=== PATIENT | male | born 1985 | race Caucasian/White ===

== ENCOUNTER 2016-09-10 07:42 | Emergency (ER) | payer SELFPAY ==
[2016-09-10 07:54] VITALS: BP 122/62; BMI 41.3
[2016-09-10] MEDS ORDERED: NS 1000 ML 1,000 ML ONE (08:03)
[2016-09-10 08:14] LABS: BASOPHILS % (AUTO) 0.4 % (0.2-1.0); EOSINOPHILS # (AUTO) 0.3 x10^3/uL (0.0-0.2); EOSINOPHILS % (AUTO) 3.7 % (0.9-2.9); HEMOGLOBIN 14.2 g/dL (13.5-18.0); LYMPHOCYTES # (AUTO) 2.1 X10^3/uL (1.3-2.9); LYMPHOCYTES % (AUTO) 30.7 % (21.0-51.0); MEAN CORPUSCULAR HEMOGLOBIN 29.1 pg (27.0-34.0); MEAN CORPUSCULAR HGB CONC 33.9 g/dL (33.0-35.0); MEAN CORPUSCULAR VOLUME 85.6 fL (80.0-100.0); MEAN PLATELET VOLUME 10.1 fL (7.4-11.0); MONOCYTES # (AUTO) 0.6 x10^3/uL (0.3-0.8); MONOCYTES % (AUTO) 9.2 % (0.0-13.0); NEUTROPHILS # (AUTO) 3.8 x10^3/uL (2.2-4.8); PLATELET COUNT 217 X10^3/uL (150.0-450.0); WHITE BLOOD COUNT 6.8 X10^3/uL (3.6-10.0)
[2016-09-10 08:17] LABS: ALANINE AMINOTRANSFERASE 33 Units/L (12-78); ALBUMIN 3.8 g/dL (3.4-5.0); ALKALINE PHOSPHATASE 80 Units/L (46-116); ASPARTATE AMINO TRANSFERASE 20 Units/L (15-37); BLOOD UREA NITROGEN 12 mg/dL (7-18); CALCIUM 8.8 mg/dL (8.5-10.1); CARBON DIOXIDE 28.1 mmol/L (21-32); CHLORIDE 105 mmol/L (98-107); CREATININE 1.09 mg/dL (0.70-1.30); GLUCOSE 90 mg/dL (65-99); SODIUM 142 mmol/L (136-145); TOTAL PROTEIN 7.8 g/dL (6.4-8.2); eGFR BLACK RACES > 60 (>60); eGFR NON BLACK RACES > 60 (>60)
[2016-09-10 08:43] LABS: CREATINE KINASE 175 Units/L (39-308); CREATINE KINASE MB < 1.0 ng/mL (0-4.0); TROPONIN I < 0.02 ng/mL (0-1.5)
--- NOTE | 2016-09-10 08:48 | CT ---
HISTORY: Syncope Study: CT brain without contrast Comparison: None Technique: Multiple axial images of the brain were obtained from the skull base to the vertex without administr ation of IV contrast. Coronal and sagittal reformats were performed. Dose reduction procedures were used with MA/kv adjusted for body size. Findings: No acute intraparenchymal hemorrhage or mass can be identified. No extra-axial fluid collections ar e seen. No alteration in the attenuation of the brain parenchyma can be identified to suggest acute or subacute ischemic change. The ventricular system is symmetric and nondilated. The extracranial structures are grossly unremarkable. IMPRESSION: No significant intracranial abnormality identified Reported By:
[2016-09-10 08:51] LABS: CKMB % 0.6 % (<4)
[2016-09-10] MEDS ORDERED: NS 1000 ML 1,000 ML IV SCH (09:00)
[2016-09-10 09:07] LABS: BILIRUBIN,URINE NEGATIVE (NEGATIVE); BLOOD/HEMOGLOBIN,URINE NEGATIVE (NEGATIVE); GLUCOSE, URINE NEGATIVE (NEGATIVE); KETONES,URINE NEGATIVE (NEGATIVE); LEUKOCYTE ESTERASE ,URINE NEGATIVE (NEGATIVE); NITRITES,URINE NEGATIVE (NEGATIVE); PH,URINE 6.5 (5.0 - 8.0); PROTEIN,URINE NEGATIVE (NEGATIVE); UROBILINOGEN,URINE 1+ (NORMAL)
[2016-09-10 09:25] LABS: APPEARANCE,URINE CLEAR (CLEAR); COLOR,URINE YELLOW (YELLOW); RBC,URINE NONE SEEN /HPF (NEGATIVE)
[2016-09-10 09:26] LABS: AMORPHOUS SEDIMENT,UR TRACE /HPF (NEGATIVE); BACTERIA,URINE NEGATIVE /HPF (NEGATIVE); SQUAMOUS EPITHELIAL CELL,UR NEGATIVE /HPF (NEGATIVE)
--- NOTE | 2016-09-10 09:37 | DR.GENAD ---
HPI - PCP Primary Care Physician: NFJosee - HPI Comment HPI Comment: PATIENT HAD SYNCOPAL EPISODE AT WORK. WAS DIZZY AND IS STILL DIZZY. NO PREVIOUS EPISODE. NO TRAUMA. - Complaint/Symptoms Chief Complaint Doctors Comments: PATIENT PASS OUT. Chief Complaint:: PATIENT STATED HE WAS AT WORK AND HE GOT WEAK AND PASSED OUT. - Nurses notes reviewed Nurses Notes Review: Yes - Source History Provided: Patient, EMS - Mode of Arrival Mode of Arrival: EMS - Timing Onset of Chief Complaint: 09/10/16 Came on: Suddenly - Duration Duration: Constant Duration: Minutes - Severity Severity: Moderate PMH - PMH Past Medical History: No Past Surgical History: No - Family History History of Family Medical Conditions: No - Social History Does patient currently use any type of tobacco product: No Have you used tobacco products in the last 12 months: No Does any household member use tobacco: No Alcohol Use: None Do you use any recreational Drugs:: No Lives With: Family Lives Where: Home - infectious screening In the last 2 months have you had wt loss of >10#?: NO Have you had fever, night sweats or hemotysis?: No Have you traveled outside the country in the last 6 months?: No Isolation: Standard ROS - Review of Systems Constitutional: No Symptoms Reported Eyes: Blurred Vision. negative: Eye Pain, Discharge ENTM: No Symptoms Reported Respiratoy: No Symptoms Reported Cardiovascular: Syncope Gastrointestinal/Abdominal: No Symptoms Reported Genitourinary: No Symptoms Reported Integumentary: No Symptoms Reported Hematologic/Lymphatic: No Symptoms Reported Endocrine: No Symptoms Reported All Other Systems: Reviewed and Negative PE - Vital Signs Vitals: Temperature 99.1 F Pulse Rate 66 Respiratory Rate 18 Blood Pressure 122/62 O2 Sat by Pulse Oximetry 99 - General Limitations: No Limitations General Appearance: Alert - Head Head Exam: Normal Inspection - Eyes Eye exam: Normal Appearance - ENT ENT Exam: Normal External Ear Exam External Ear Exam: Normal External Inspection TM/Canal Exam: Bilateral Normal Nose Exam: Normal Nose Exam Mouth Exam: Normal Inspection Throat Exam: Normal Inspection - Neck Neck Exam: Trachea Midline. negative: Tenderness, Meningismus, Lymphadenopathy - Chest Chest Inspection: Symmetric Chest Wall Rise - Respiratory Respiratory Exam: Normal Lung Sounds Bilat Respiratory Exam: Bilateral Clear to Auscultation - Cardiovascular Cardiovascular Exam: Regular Rate, Normal Rhythm, Normal Heart Sounds - Abdominal Exam Abdominal Exam: Normal Bowel Sounds, Soft. negative: Tenderness - Extremities Extremities Exam: Normal Inspection - Back Back Exam: Normal Inspection - Neurologic Neurological Exam: Alert, Oriented X3 - Psychiatric Psychiatric Exam: Normal Affect, Normal Mood - Skin Skin Exam: Normal Color MDM - Differential Diagnosis Differential Diagnosis: SYNCOPAL EPISODE, VERTIGO, HEAT RELATED ILLNESS, SINUSITIS, LABYRINTHITIS Course - Treatment Treatment: SEE ORDERS - Education/Counseling Education/Counseling: Patient, Education Educated On: Diagnosis, Needs for Follow Up ROR - Labs Reviewed Laboratory Results Reviewed?: Yes Result Diagrams: 09/10/16 07:56 09/10/16 07:56 Laboratory: WBC 6.8 X10^3/uL (3.6-10.0) 09/10/16 07:56 RBC 4.90 X10^6/uL (4.7-6.0) 09/10/16 07:56 Hgb 14.2 g/dL (13.5-18.0) 09/10/16 07:56 Hct 42.0 % (42.0-54.0) 09/10/16 07:56 MCV 85.6 fL (80.0-100.0) 09/10/16 07:56 MCH 29.1 pg (27.0-34.0) 09/10/16 07:56 MCHC 33.9 g/dL (33.0-35.0) 09/10/16 07:56 RDW 14.0 % (11.6-16.5) 09/10/16 07:56 Plt Count 217 X10^3/uL (150.0-450.0) 09/10/16 07:56 MPV 10.1 fL (7.4-11.0) 09/10/16 07:56 Neut % 56.0 % (42.0-75.0) 09/10/16 07:56 Lymph % 30.7 % (21.0-51.0) 09/10/16 07:56 [place] % 9.2 % (0.0-13.0) 09/10/16 07:56 Eos % 3.7 % (0.9-2.9) H 09/10/16 07:56 Baso % 0.4 % (0.2-1.0) 09/10/16 07:56 Neut # 3.8 x10^3/uL (2.2-4.8) 09/10/16 07:56 Lymph # 2.1 X10^3/uL (1.3-2.9) 09/10/16 07:56 Roane # 0.6 x10^3/uL (0.3-0.8) 09/10/16 07:56 Eos # 0.3 x10^3/uL (0.0-0.2) H 09/10/16 07:56 Baso # 0.0 X10^3/uL (0.0-0.1) 09/10/16 07:56 Absolute Nucleated RBC 0.0 /100WBC 09/10/16 07:56 Sodium 142 mmol/L (136-145) 09/10/16 07:56 Corrected Sodium TNP 09/10/16 07:56 Potassium 3.5 mmol/L (3.5-5.1) 09/10/16 07:56 Chloride 105 mmol/L (98-107) 09/10/16 07:56 Carbon Dioxide 28.1 mmol/L (21-32) 09/10/16 07:56 BUN 12 mg/dL (7-18) 09/10/16 07:56 Creatinine 1.09 mg/dL (0.70-1.30) 09/10/16 07:56 Est GFR (MDRD) Af Amer > 60 (>60) 09/10/16 07:56 Est GFR (MDRD) Non-Af > 60 (>60) 09/10/16 07:56 Glucose 90 mg/dL (65-99) 09/10/16 07:56 Calcium 8.8 mg/dL (8.5-10.1) 09/10/16 07:56 Corrected Calcium TNP 09/10/16 07:56 Total Bilirubin 0.60 mg/dL (0.2-1.0) 09/10/16 07:56 AST 20 Units/L (15-37) 09/10/16 07:56 ALT 33 Units/L (12-78) 09/10/16 07:56 Alkaline Phosphatase 80 Units/L (46-116) 09/10/16 07:56 Creatine Kinase 175 Units/L (39-308) 09/10/16 07:56 CK-MB (CK-2) < 1.0 ng/mL (0-4.0) 09/10/16 07:56 CK/CKMB % Calc 0.6 % (<4) 09/10/16 07:56 Troponin I < 0.02 ng/mL (0-1.5) 09/10/16 07:56 Total Protein 7.8 g/dL (6.4-8.2) 09/10/16 07:56 Albumin 3.8 g/dL (3.4-5.0) 09/10/16 07:56 Globulin 4.0 g/dL (2.5-4.5) 09/10/16 07:56 Albumin/Globulin Ratio 1.0 Ratio (1.1-2.1) L 09/10/16 07:56 Specimen Type Clean catch urine 09/10/16 08:53 Urine Color Yellow (YELLOW) 09/10/16 08:53 Urine Appearance Clear (CLEAR) 09/10/16 08:53 Urine pH 6.5 (5.0 - 8.0) 09/10/16 08:53 Ur Specific [place] 1.015 (1.000-1.030) 09/10/16 08:53 Urine Protein Negative (NEGATIVE) 09/10/16 08:53 Urine Glucose (UA) Negative (NEGATIVE) 09/10/16 08:53 Urine Ketones Negative (NEGATIVE) 09/10/16 08:53 Urine Occult Blood Negative (NEGATIVE) 09/10/16 08:53 Urine Nitrite Negative (NEGATIVE) 09/10/16 08:53 Urine Bilirubin Negative (NEGATIVE) 09/10/16 08:53 Urine Urobilinogen 1+ (NORMAL) 09/10/16 08:53 Ur Leukocyte Esterase Negative (NEGATIVE) 09/10/16 08:53 Urine RBC None seen /HPF (NEGATIVE) 09/10/16 08:53 Urine WBC None seen /HPF (NEGATIVE) 09/10/16 08:53 Ur Squamous Epith Cells Negative /HPF (NEGATIVE) 09/10/16 08:53 Amorphous Sediment Trace /HPF (NEGATIVE) 09/10/16 08:53 Urine Bacteria Negative /HPF (NEGATIVE) 09/10/16 08:53 Ur Culture Indicated? No/not indicated 09/10/16 08:53 Urine Opiates Screen Negative (NEG=<300) 09/10/16 08:53 Urine Methadone Screen Negative (NEG=<300) 09/10/16 08:53 Ur Barbiturates Screen Negative (NEG=<200) 09/10/16 08:53 Ur Phencyclidine Scrn Negative (NEG=<25) 09/10/16 08:53 Ur Amphetamines Screen Negative (NEG=<1000) 09/10/16 08:53 U Benzodiazepines Scrn Negative (NEG=<200) 09/10/16 08:53 Urine Cocaine Screen Negative (NEG=<300) 09/10/16 08:53 U Marijuana (THC) Screen Negative (NEG=<50) 09/10/16 08:53 - XRAY XRAY Interpreted by: Radiologist XRAY Findings: REPORT DISCUSS WITH PATIENT. - EKG Rhythm: NSR (EKG NOTED) - Diagnosis Discharge Problem: Vertigo, Dizziness Syncope Qualifiers: Syncope type: unspecified Qualified Code(s): R55 - Syncope and collapse - Discharge Plan Disposition: 01 HOME, SELF-CARE Condition: Stable Prescriptions: Meclizine HCl [Meclizine 25] 25 mg PO TID PRN #20 tab PRN Reason: - Follow ups/Referrals Follow ups/Referrals: NFD,None [Primary Care Provider] - 3 days LUKE BELTRAN [STAFF PHYSICIAN] - 3 days - Instructions Instructions: Syncope, [id number], Dizziness, Vertigo, [id number] Additional Instructions: RETURN TO ED IF WORSE
== END 2016-09-10 10:41 | disposition home or self-care (01) ==
LOC: ER 07:42
DX: R55 Syncope and collapse (principal); R42 Dizziness and giddiness
CPT/HCPCS: 36415; 70450; 80053; 80307; 81001; 82550; 82553; 84484; 85025; 93005; 93010; 96365; 96367; 99283; A4222; G0434

== ENCOUNTER 2016-12-17 12:53 | Emergency (ER) | payer SELFPAY ==
[2016-12-17 13:07] VITALS: BP 142/72; BMI 28.0
[2016-12-17] MEDS ORDERED: NS 1000 ML 1,000 ML IV ONE ×2 (13:23→14:08)
[2016-12-17] MEDS ORDERED: NS 1000 ML 1,000 ML ONE (13:23)
--- NOTE | 2016-12-17 13:57 | DR.GENAD ---
HPI - PCP Primary Care Physician: NFD - Complaint/Symptoms Chief Complaint Doctors Comments: Patient relates that he has had a cough for one week, non productive. He has not been getting adequate rest ( seven months ), getting about four hours sleep per night and not getting hydration while working. It has been very hout lately. Does not take water breaks. Chief Complaint:: PT C/O DIZZINESS AND SYNCOPE EPISODE. 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 - Source History Provided: Patient - Mode of Arrival Mode of Arrival: EMS - Timing Onset of Chief Complaint: 12/17/16 PMH - PMH Past Medical History: No Past Surgical History: No - Family History History of Family Medical Conditions: No - Social History Does any household member use tobacco: No Alcohol Use: None Do you use any recreational Drugs:: No Lives With: Family Lives Where: Home - infectious screening In the last 2 months have you had wt loss of >10#?: NO Have you had fever, night sweats or hemotysis?: No Have you traveled outside the country in the last 6 months?: No Isolation: Standard ROS - Review of Systems Eyes: No Symptoms Reported ENTM: No Symptoms Reported Respiratoy: No Symptoms Reported Cardiovascular: No Symptoms Reported Gastrointestinal/Abdominal: No Symptoms Reported Genitourinary: No Symptoms Reported Neurological: No Symptoms Reported Musculoskeletal: No Symptoms Reported Integumentary: No Symptoms Reported Hematologic/Lymphatic: No Symptoms Reported Endocrine: No Symptoms Reported Psychiatric: No Symptoms Reported All Other Systems: Reviewed and Negative PE - Vital Signs Vitals: Temperature 99.1 F Pulse Rate 83 Respiratory Rate 20 Blood Pressure 142/72 O2 Sat by Pulse Oximetry 100 - General Limitations: No Limitations General Appearance: Alert, In No Apparent Distress, Anxious - Head Head Exam: Normal Inspection, Atraumatic - Eyes Eye exam: Normal Appearance, PERRL, EOMI - ENT ENT Exam: Normal Exam External Ear Exam: Normal External Inspection TM/Canal Exam: Bilateral Normal Nose Exam: Normal Nose Exam, Sinus Tenderness Mouth Exam: Normal Inspection Throat Exam: Normal Inspection - Neck Neck Exam: Normal Inspection - Chest Chest Inspection: Normal Inspection - Respiratory Respiratory Exam: Normal Lung Sounds Bilat Respiratory Exam: Bilateral Clear to Auscultation - Cardiovascular Cardiovascular Exam: Regular Rate, Normal Rhythm - Abdominal Exam Abdominal Exam: Normal Inspection Abdominal Tenderness: negative: RUQ, RLQ, LUQ, LLQ, Epigastrium, Suprapubic, Diffuse, Mild, Moderate, Severe, Other - Extremities Extremities Exam: Normal Inspection, Full ROM - Back Back Exam: Normal Inspection, Full ROM - Neurologic Neurological Exam: Alert, Oriented X3, CN II-XII Intact - Psychiatric Psychiatric Exam: Normal Affect, Normal Mood - Skin Skin Exam: Warm, Dry, Intact ROR - Labs Reviewed Result Diagrams: 12/17/16 14:03 12/17/16 14:03 Laboratory: WBC 6.3 X10^3/uL (3.6-10.0) 12/17/16 14:03 RBC 4.28 X10^6/uL (4.7-6.0) L 12/17/16 14:03 Hgb 12.2 g/dL (13.5-18.0) L 12/17/16 14:03 Hct 36.2 % (42.0-54.0) L 12/17/16 14:03 MCV 84.7 fL (80.0-100.0) 12/17/16 14:03 MCH 28.6 pg (27.0-34.0) 12/17/16 14:03 MCHC 33.8 g/dL (33.0-35.0) 12/17/16 14:03 RDW 13.4 % (11.6-16.5) 12/17/16 14:03 Plt Count 268 X10^3/uL (150.0-450.0) 12/17/16 14:03 MPV 8.9 fL (7.4-11.0) 12/17/16 14:03 Neut % 67.7 % (42.0-75.0) 12/17/16 14:03 Lymph % 23.0 % (21.0-51.0) 12/17/16 14:03 [place]zie % 7.8 % (0.0-13.0) 12/17/16 14:03 Eos % 1.0 % (0.9-2.9) 12/17/16 14:03 Baso % 0.5 % (0.2-1.0) 12/17/16 14:03 Neut # 4.3 x10^3/uL (2.2-4.8) 12/17/16 14:03 Lymph # 1.4 X10^3/uL (1.3-2.9) 12/17/16 14:03 Benzie # 0.5 x10^3/uL (0.3-0.8) 12/17/16 14:03 Eos # 0.1 x10^3/uL (0.0-0.2) 12/17/16 14:03 Baso # 0.0 X10^3/uL (0.0-0.1) 12/17/16 14:03 Absolute Nucleated RBC 0.0 /100WBC 12/17/16 14:03 Sodium 142 mmol/L (136-145) 12/17/16 14:03 Corrected Sodium TNP 12/17/16 14:03 Potassium 4.0 mmol/L (3.5-5.1) 12/17/16 14:03 Chloride 108 mmol/L (98-107) H 12/17/16 14:03 Carbon Dioxide 30.9 mmol/L (21-32) 12/17/16 14:03 BUN 13 mg/dL (7-18) 12/17/16 14:03 Creatinine 1.02 mg/dL (0.70-1.30) 12/17/16 14:03 Est GFR (MDRD) Af Amer > 60 (>60) 12/17/16 14:03 Est GFR (MDRD) Non-Af > 60 (>60) 12/17/16 14:03 Glucose 94 mg/dL (65-99) 12/17/16 14:03 Uric Acid 7.0 mg/dL (3.5-7.2) 12/17/16 14:03 Calcium 8.1 mg/dL (8.5-10.1) L 12/17/16 14:03 Corrected Calcium TNP 12/17/16 14:03 Total Bilirubin 0.60 mg/dL (0.2-1.0) 12/17/16 14:03 AST 18 Units/L (15-37) 12/17/16 14:03 ALT 25 Units/L (12-78) 12/17/16 14:03 Alkaline Phosphatase 63 Units/L (46-116) 12/17/16 14:03 CK-MB (CK-2) < 1.0 ng/mL (0-4.0) 12/17/16 14:03 Total Protein 7.5 g/dL (6.4-8.2) 12/17/16 14:03 Albumin 3.5 g/dL (3.4-5.0) 12/17/16 14:03 Globulin 4.0 g/dL (2.5-4.5) 12/17/16 14:03 Albumin/Globulin Ratio 0.9 Ratio (1.1-2.1) L 12/17/16 14:03 - XRAY XRAY Interpreted by: Radiologist (No acute cardiopulmonary disease) - Diagnosis Discharge Problem: Heat exhaustion, unspecified Qualifiers: Encounter type: initial encounter Qualified Code(s): T67.5XXA - Heat exhaustion , unspecified, initial encounter - Discharge Plan Condition: Stable - Follow ups/Referrals Follow ups/Referrals: Misc [Primary Care Provider] - 3 days - Instructions
[2016-12-17 14:15] LABS: BASOPHILS % (AUTO) 0.5 % (0.2-1.0); EOSINOPHILS # (AUTO) 0.1 x10^3/uL (0.0-0.2); HEMATOCRIT 36.2 % (42.0-54.0); HEMOGLOBIN 12.2 g/dL (13.5-18.0); LYMPHOCYTES # (AUTO) 1.4 X10^3/uL (1.3-2.9); MEAN CORPUSCULAR HEMOGLOBIN 28.6 pg (27.0-34.0); MEAN CORPUSCULAR HGB CONC 33.8 g/dL (33.0-35.0); MEAN CORPUSCULAR VOLUME 84.7 fL (80.0-100.0); MEAN PLATELET VOLUME 8.9 fL (7.4-11.0); MONOCYTES # (AUTO) 0.5 x10^3/uL (0.3-0.8); MONOCYTES % (AUTO) 7.8 % (0.0-13.0); NEUTROPHILS # (AUTO) 4.3 x10^3/uL (2.2-4.8); NEUTROPHILS % (AUTO) 67.7 % (42.0-75.0); PLATELET COUNT 268 X10^3/uL (150.0-450.0); RED BLOOD COUNT 4.28 X10^6/uL (4.7-6.0); RED CELL DISTRIBUTION WIDTH 13.4 % (11.6-16.5); WHITE BLOOD COUNT 6.3 X10^3/uL (3.6-10.0)
--- NOTE | 2016-12-17 14:28 | RAD ---
HISTORY: Cough for 1 week. Study: Chest one view Comparison: None. Findings: The trachea is midline. The cardiac silhouette is unremarkable. The lungs are clear without focal infiltrate or effusion. The bony thorax is unremarkable. IMPRESSION: 1. No acute cardiopulmonary disease. Reported By:
[2016-12-17 14:40] LABS: ALANINE AMINOTRANSFERASE 25 Units/L (12-78); ALBUMIN 3.5 g/dL (3.4-5.0); ALKALINE PHOSPHATASE 63 Units/L (46-116); ASPARTATE AMINO TRANSFERASE 18 Units/L (15-37); BLOOD UREA NITROGEN 13 mg/dL (7-18); CALCIUM 8.1 mg/dL (8.5-10.1); CARBON DIOXIDE 30.9 mmol/L (21-32); CHLORIDE 108 mmol/L (98-107); CREATINE KINASE MB < 1.0 ng/mL (0-4.0); CREATININE 1.02 mg/dL (0.70-1.30); GLUCOSE 94 mg/dL (65-99); SODIUM 142 mmol/L (136-145); TOTAL PROTEIN 7.5 g/dL (6.4-8.2); eGFR BLACK RACES > 60 (>60); eGFR NON BLACK RACES > 60 (>60)
== END 2016-12-17 15:46 | disposition home or self-care (01) ==
LOC: ER 13:00
DX: T67.5XXA Heat exhaustion, unspecified, initial encounter (principal)
CPT/HCPCS: 36415; 71010; 80053; 82550; 82552; 82553; 84550; 85025; 96365; 99282; 99283